=== PATIENT | male | born 1940 | race Caucasian/White ===

== ENCOUNTER 2020-09-02 20:10 | Inpatient (IN) | payer OTHER, BC ==
[2020-09-02 20:24] VITALS: BMI 29.6
[2020-09-02 21:05] LABS: BASO % 0.2 % (0-2.0); EOS % 1.2 % (0-4.5); HEMATOCRIT 44.6 % (35.4-49); HEMOGLOBIN 14.4 GM/dL (11.7-16.9); LYMPH % 9.8 % (8-40); MCHC 32.4 g/dl (32.0-35.9); MEAN CELL VOLUME 92.6 fl (80-96); MEAN PLT VOLUME 8.5 fl (7.5-11.1); MONO % 7.8 % (3.8-10.2); PLATELET COUNT 143 K/MM3 (134-434); RBC 4.81 M/mm3 (4.00-5.60); RDW 15.3 % (11.9-15.9); WHITE BLOOD COUNT 7.8 K/mm3 (4.0-10.0)
[2020-09-02 21:19] LABS: INR 0.96 (0.83-1.09); PROTHROMBIN TIME (PATIENT) 11.6 SEC (9.7-13.0)
[2020-09-02 21:21] LABS: ACTIVATED PTT 29.2 SECONDS (25.2-36.5); POTASSIUM 4.9 mmol/L (3.5-5.1)
[2020-09-02 21:23] LABS: CALCIUM 9.4 mg/dL (8.5-10.1)
[2020-09-02 21:24] LABS: ALBUMIN 3.6 g/dl (3.4-5.0); BLOOD UREA NITROGEN 31.9 mg/dL (7-18)
[2020-09-02 21:27] LABS: CHOLESTEROL 139 mg/dL (50-200); CREATININE 1.1 mg/dL (0.55-1.3); TRIGLYCERIDES 86 mg/dL (0-150)
[2020-09-02 21:28] LABS: LDL CHOLESTEROL (ONLY SJRH) 54 mg/dL (5-100)
[2020-09-02 21:29] LABS: BILIRUBIN,TOTAL 0.4 mg/dL (0.2-1); TOT PROT 6.9 g/dl (6.4-8.2)
[2020-09-02 21:30] LABS: HDL CHOLESTEROL 72 mg/dL (40-60)
[2020-09-02] MEDS: SODIUM CHLORIDE 1,000 ML IV SCH (22:08)
[2020-09-02] MEDS ORDERED: ASPIRIN 81 MG CHEWABLE TABLETS PO ONE (22:53)
[2020-09-02] MEDS ORDERED: ASPIRIN 81 MG CHEWABLE TABLETS ONE (23:24)
[2020-09-02] MEDS ORDERED: ATORVASTATIN CA 80 MG TABLET (FP) PO ONE (23:48)
[2020-09-02] MEDS ORDERED: LIDOCAINE 5% TOPICAL PATCH TP ONE (23:57)
[2020-09-03] MEDS ORDERED: ATORVASTATIN CA 80 MG TABLET (FP) ONE (00:39)
[2020-09-03] MEDS ORDERED: LIDOCAINE 5% TOPICAL PATCH ONE ×2 (00:39→12:21)
[2020-09-03 03:04] LABS: URINE APPEARANCE CLOUDY; URINE BILIRUBIN NEGATIVE (NEGATIVE); URINE COLOR YELLOW; URINE GLUCOSE (UA) NEGATIVE (NEGATIVE); URINE KETONE NEGATIVE (NEGATIVE); URINE LEUK ESTERASE NEGATIVE (NEGATIVE); URINE NITRITE NEGATIVE (NEGATIVE); URINE PROTEIN TRACE (NEGATIVE); URINE UROBILINOGEN 0.2 mg/dL (0.2-1.0)
[2020-09-03 06:46] LABS: BASO % 0.4 % (0-2.0); EOS % 0.9 % (0-4.5); HEMATOCRIT 42.6 % (35.4-49); HEMOGLOBIN 13.9 GM/dL (11.7-16.9); LYMPH % 19.6 % (8-40); MCH 30.3 pg (25.7-33.7); MCHC 32.7 g/dl (32.0-35.9); MEAN CELL VOLUME 92.8 fl (80-96); MEAN PLT VOLUME 8.1 fl (7.5-11.1); MONO % 10.2 % (3.8-10.2); NEUT % 68.9 % (42.8-82.8); PLATELET COUNT 128 K/MM3 (134-434); RBC 4.59 M/mm3 (4.00-5.60); RDW 15.2 % (11.9-15.9); WHITE BLOOD COUNT 6.5 K/mm3 (4.0-10.0)
[2020-09-03 06:48] LABS: POTASSIUM 4.1 mmol/L (3.5-5.1)
[2020-09-03 06:51] LABS: ALBUMIN 3.4 g/dl (3.4-5.0); BLOOD UREA NITROGEN 29.3 mg/dL (7-18); CALCIUM 8.8 mg/dL (8.5-10.1); MAGNESIUM 2.1 mg/dL (1.8-2.4)
[2020-09-03 06:54] LABS: CREATININE 1.2 mg/dL (0.55-1.3)
[2020-09-03 06:55] LABS: BILIRUBIN,TOTAL 0.7 mg/dL (0.2-1); PHOSPHOROUS 2.7 mg/dL (2.5-4.9)
[2020-09-03 06:56] LABS: TOT PROT 6.1 g/dl (6.4-8.2)
[2020-09-03] MEDS ORDERED: ENOXAPARIN NA (PORCINE) 40 MG/0.4 ML DISP.SYRIN SQ SCH (10:00)
[2020-09-03] MEDS: ASPIRIN 81 MG CHEWABLE TABLETS PO SCH (10:01)
[2020-09-03] MEDS ORDERED: LIDOCAINE PATCH REMOVAL MC ONE (12:00)
[2020-09-03] MEDS ORDERED: ATORVASTATIN CA 40 MG TABLET (FP) PO SCH (22:00)
[2020-09-03] MEDS ORDERED: ATORVASTATIN CA 40 MG TABLET (FP) ONE (22:19)
[2020-09-03] MEDS: SODIUM CHLORIDE 1,000 ML IV SCH (22:35)
[2020-09-04] MEDS ORDERED: ASPIRIN 81 MG CHEWABLE TABLETS ONE (10:41)
[2020-09-04] MEDS: ASPIRIN 81 MG CHEWABLE TABLETS PO SCH (10:46)
[2020-09-04 10:48] VITALS: BP 102/65; PULSE 98; TEMP 98.1
== END 2020-09-04 10:50 | disposition left against medical advice (07) | DRG 69 ==
LOC: JER 20:10 → JERBED 23:29
PROVIDERS: ADMIT Internal Medicine
DX: G45.9 Transient cerebral ischemic attack, unspecified (principal); I25.10 Atherosclerotic heart disease of native coronary artery without angina pectoris; Z95.1 Presence of aortocoronary bypass graft; N40.0 Benign prostatic hyperplasia without lower urinary tract symptoms; Z95.0 Presence of cardiac pacemaker; I10 Essential (primary) hypertension; I45.10 Unspecified right bundle-branch block; S09.90XA Unspecified injury of head, initial encounter; W19.XXXA Unspecified fall, initial encounter; Y93.9 Activity, unspecified; Y92.009 Unspecified place in unspecified non-institutional (private) residence as the place of occurrence of the external cause; Y99.8 Other external cause status; E78.5 Hyperlipidemia, unspecified; I25.5 Ischemic cardiomyopathy; Z95.2 Presence of prosthetic heart valve; I48.0 Paroxysmal atrial fibrillation; Z79.01 Long term (current) use of anticoagulants
CPT/HCPCS: 36415; 70450-TC; 71045-TC-FY; 72125-TC; 80053; 80061; 81003; 82550; 83036; 83721; 83735; 84100; 84443; 84484; 85025; 85610; 85730; 86850; 86900; 86901; 93005; 93010; 93306-TC; 93880-TC; 99285-25; C9803; U0003